=== PATIENT | female | born 1965 | race Caucasian/White ===

== ENCOUNTER 2023-06-12 21:59 | Emergency (ER) | payer OTHER ==
[~2023-06-12] VITALS: Ht 157.5 cm; Wt 99.8 kg
[2023-06-12 22:34] VITALS: BP 98/50; PULSE 2; PULSE 82; RESP 16; TEMP 97; O2SAT 98
[2023-06-12] MEDS ORDERED: ACETAMINOPHEN EXTRA STRENGTH 500 MG TAB PO ONE (23:45)
[2023-06-13 01:17] VITALS: BP 136/78; PULSE 72; RESP 16; TEMP 98.2; O2SAT 99
== END 2023-06-13 01:17 | disposition home or self-care (01) ==
LOC: MED 21:59
DX: S39.012A Strain of muscle, fascia and tendon of lower back, initial encounter (principal); V49.88XA Car occupant (driver) (passenger) injured in other specified transport accidents, initial encounter; Y93.89 Activity, other specified; Y92.89 Other specified places as the place of occurrence of the external cause; Y99.8 Other external cause status
CPT/HCPCS: 72072; 72110; 99284